=== PATIENT | male | born 1970 | race Caucasian/White ===

== ENCOUNTER 2025-01-04 01:22 | Day surgery (SDC) | payer OTHER, SELFPAY ==
[2024-12-26 09:19] VITALS: BMI 37.9
--- OUTSIDE RECORDS SUMMARY | 2025-01-04 01:26 | XMS_ITS | Clinical Summary ---
Author Organization [facility] Address [facility] [place] [address] Care Team Providers Care Med Admin Name Role Phone Vidal Wood MD Primary Care Provider [phone] Allergies No known active allergies Medications ondansetron (ZOFRAN-ODT) 4 MG disintegrating tablet Take 1 tablet (4 mg total) by mouth every 8 (eight) hours as needed. 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 Gender Identity Not on file Sexual Orientation Not on file Last Filed Vital Signs Vital Sign Reading Time Taken Comments Blood Pressure 160/88 10/02/2022 3:17 PM SHIP YARD ELECTRICAL PERSON Pulse 64 10/02/2022 3:17 PM SHIP YARD ELECTRICAL PERSON Temperature 36.9 C (98.5 F) 10/02/2022 3:17 PM SHIP YARD ELECTRICAL PERSON Respiratory Rate 16 10/02/2022 3:17 PM SHIP YARD ELECTRICAL PERSON Oxygen Saturation 99% 10/02/2022 3:17 PM SHIP YARD ELECTRICAL PERSON Inhaled Oxygen Concentration - - Weight 131.5 kg (290 lb) 10/02/2022 3:17 PM SHIP YARD ELECTRICAL PERSON Height 190.5 cm (6' 3 ) 10/02/2022 3:17 PM SHIP YARD ELECTRICAL PERSON Body Mass Index 36.25 10/02/2022 3:17 PM SHIP YARD ELECTRICAL PERSON Plan of Treatment Health Maintenance Due Date Last Done Comments Colorectal Cancer Screening Colonoscopy (10 Years) 1972 Annual Physical 02/26/1975 Hepatitis C 02/26/1990 DTaP, Tdap and Td Vaccines ( 1 - Tdap) 02/26/1991 Hepatitis B Vaccines (1 of 3 - 19+ 3-dose series) 02/26/1991 Pneumococcal Vaccine: 50+ Ye ars (1 of 1 - PCV) 02/26/2022 Zoster Vaccines (1 of 2) 02/26/2022 COVID-19 Vaccine (1 - 2023-2 5 season) 2024 Meningococcal B Vaccine Aged Out No l onger eligible based on patient's age to complete this topic Meningococcal Vaccine Aged Out No vic bhavna eligible based on patient's age to complete this topic RSV Immunizations Under 20 Months Aged Out No longer eligible based on patient's age to complete this topic Insurance Care Teams Med Admin Relationship Specialty Start Date End Date Vidal Wood MD [address] [place] [address] [address] [place] [address] PCP - General FAMILY PRACTICE 10/02/22
--- OUTSIDE RECORDS SUMMARY | 2025-01-04 01:26 | XMS_ITS | Referral Summary ---
Author Organization [facility] [address] [place] [id number] Care Team Providers Care Test Engineering Manager Name Role Phone Vidal Wood MD Primary Care Provider [phone] Allergies No known active allergies Medications levocetirizine (XYZAL) 5 mg tablet Take 5 mg by mouth every evening Active omeprazole (PriLOSEC) 20 mg capsule Take 20 mg by mouth as needed Active fluticasone propionate (FLONASE) 50 mcg/actuation nasal spray Administer 1 spray into each nostril daily Active eszopiclone (LUNESTA) 3 mg tablet 0 Active Active Problems No known active problems Social History Tobacco Use Types Packs/Day Years Used Date Smoking Tobacco: Never Smokeless Tobacco: Never Alcohol Use Standard Drinks/Week Comments No 0 (1 standard drink = 0.6 oz pur e alcohol) occasional Sex and Gender Information Value Date Recorded Sex Assigned at Not on file 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 Gender Identity Not on file Sexual Orientation Not on file Last Filed Vital Signs Vital Sign Reading Time Taken Comments Blood Pressure 155/84 11/18/2020 7:30 PM CDT Pulse 76 11/18/2020 7:30 PM CDT Temperature 36.8 C (98.3 F) 11/18/2020 6:22 PM CDT Respiratory Rate 20 11/18/2020 6:22 PM CDT Oxygen Saturation 97% 11/18/2020 7:30 PM CDT Inhaled Oxygen Concentration - - Weight 111.1 kg (245 lb) 11/18/2020 6:22 PM CDT Height 188 cm (6' 2 ) 11/18/2020 6:22 PM CDT Body Mass Index 31.46 11/18/2020 6:22 PM CDT Plan of Treatment Not on file Insurance [employer] [facility] [facility] [employer] Address: [facility] [address] [place] [address] [employer] [facility] [employer] Address: [address] [place] [address] Care Teams Test Engineering Manager Relationship Specialty Start Date End Date Vidal Wood MD [address] [address] PCP - General 09/14/07
--- OUTSIDE RECORDS SUMMARY | 2025-01-04 01:26 | XMS_ITS | Clinical Summary ---
Author Organization [facility] Physician Of [facility] [address] [place] [phone] Care Team Providers Care Wagon Driver Salesperson Name Role Phone Vidal Wood MD Primary Care Provider [phone] Allergies No known active allergies Medications levocetirizine (XYZAL) 5 mg tablet Take 5 mg by mouth every evening Active omeprazole (PriLOSEC) 20 mg capsule Take 20 mg by mouth as needed Active fluticasone propionate (FLONASE) 50 mcg/actuation nasal spray Administer 1 spray into each nostril daily Active eszopiclone (LUNESTA) 3 mg tablet 0 Active Active Problems No known active problems Surgical History Surgery Date Site/Laterality Comments TONSILLECTOMY Tonsillectomy Medical History Medical History Date Comments GERD (gastroesophageal reflux disease) Allergic Family History Medical History Relation Name Comments Brain Aneurysm Brother 1 Brain tumor Brother 2 Heart disease Father Diabetes Mother Other Other 1 Family history of Aneurysm; Cancer Other 2 Family history of Cancer -; Diabetes type II Other 3 Family hist ory of Diabetes -Type 2; Hypertension Other 4 Family history of Hypertension; Relation Name Status Comments Brother 1 Brother 2 Father Mother Other 1 Other 2 Other 3 Other 4 Social History Tobacco Use Types Packs/Day Years Used Date Smoking Tobacco: Never Smokeless Tobacco: Never Alcohol Use Standard Drinks/Week Comments No 0 (1 standard drink = 0.6 oz pur e alcohol) occasional Sex and Gender Information Value Date Recorded Sex Assigned at Not on file 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
[2025-01-04 08:39] VITALS: BP 134/96; PULSE 72; RESP 20; TEMP 36.1; O2SAT 98
[2025-01-04] MEDS: LACTATED RINGERS 1,000 ML 150 ML IV CONT (08:41)
--- NOTE | 2025-01-04 08:47 | P.PNAN_ITS ---
Anes - Initial Pre Proc Eval Procedure: Operation Date: 01/04/25 09:30 Proposed Procedures p Screening Colonoscopy - Frederick Valadez MD Date/Time: 01/04/25 08:47 Surgeon: Frederick Valadez MD Pre Op Diagnosis: Screening Patient Data Age: 54 Gender: M Height: 1.88 m Weight: 129 kg Last Vital Signs Temp 97 F L 01/04/25 08:39 Pulse 72 01/04/25 08:39 Resp 20 01/04/25 08:39 BP 134/96 H 01/04/25 08:39 Pulse Ox 98 01/04/25 08:39 O2 Del Method Room Air 01/04/25 08:39 Allergies Allergy/AdvReac Type Severity Reaction Status Date / Time No Known Allergies Allergy Verified 01/04/25 08:33 Home Medications ?Medication ?Instructions ?Recorded ?Confirmed ?Type aluminum chloride 20 % topical 1 applic topical 2XW PRN excessive 09/20/19 12/26/24 Rx solution (Drysol) sweating #35 mL eszopiclone 3 mg tablet 3 mg PO . each bedtime PRN 09/01/22 12/26/24 Rx insomnia #30 tabs fexofenadine 180 mg tablet 180 mg PO DAILY PRN Allergy 08/02/23 01/04/25 History (Linda Allergy) triamcinolone acetonide 0.5 % 1 applic topical DAILY PRN eczema 08/02/23 12/26/24 Rx topical cream #30 grams triamcinolone acetonide 55 mcg 1 spray intranasal . b.i.d. 08/02/23 01/04/25 History nasal spray aerosol (Nasacort Allergy) syringe with needle, safety 3 mL #50 ea 02/11/24 10/11/24 Rx 23 gauge x 1 (BD Integra Syringe) meloxicam 15 mg tablet 15 mg PO DAILY PRN pain #90 tabs 02/29/24 12/26/24 Rx tadalafil 20 mg tablet (Cialis) 20 mg PO DAILY PRN sexual activity 09/08/24 12/26/24 Rx #30 tabs testosterone cypionate 200 mg/mL See Rx Instructions IM .COMPLEX #6 10/11/24 01/04/25 Rx intramuscular oil mL (Depo-Testosterone) modafinil 100 mg tablet 100 mg PO QAM #90 tabs 11/01/24 01/04/25 Rx bupropion HCl 300 mg 24 hr tablet, 300 mg PO QAM #90 tabs 12/05/24 01/04/25 Rx extended release (Wellbutrin XL) ranitidine HCl 150 mg tablet 150 mg PO DAILY 12/26/24 01/04/25 History Patient hx anesthesia problems: none Family hx anesthesia problems: none Results Review: All pre-operative results and documents have been reviewed as part of the pre- operative evaluation. [facility] Past Medical History Medical History Colon cancer screening Cataract cataract left eye with anticipated surgery 10/30/2024 Near syncope Hypersomnia BMI 39.0-39.9,adult Obesity (BMI 30-39.9) Lateral epicondylitis of right elbow (~12/2023) Chronic pain of right knee Eczema hands Morbid obesity with BMI of 40.0-44.9, adult Lateral cutaneous nerve of thigh syndrome Skin exam, screening for cancer Umbilical hernia (~08/02/23) Acute sinusitis Screening for STD (sexually transmitted disease) labs negative on 07/27/2023. Elevated blood pressure reading in office with white coat syndrome, without diagnosis of hypertension BMI 33.0-33.9,adult Family history of cerebral aneurysm Benign paroxysmal positional vertigo due to bilateral vestibular disorder Normal CT of the brain and CT of the sinuses at [facility] ER on 11/18/2020 BMI 32.0-32.9,adult Hyperhidrosis STD exposure all labs negative on 04/04/2021 Encounter for wellness examination in adult Encounter for prostate cancer screening PSA 0.4 on 04/04/2021. PSA 0.58 on 07/27/2023. Seasonal allergic rhinitis Male erectile dysfunction, unspecified Polycythemia hemoglobin 19.0 on 04/04/2021. Hemoglobin normal at 16.7 on 07/27/2023. Hypogonadism male Testosterone 1392 with free testosterone elevated at 252.8 measured 3 days after dosing 07/27/2023. Testosterone 514 with free testosterone 51.9 on 01/28/2024. Chronic depression Chronic anxiety TSH normal at 3.79 on 01/28/2024. Obstructive sleep apnea APAP at 6-16 cm of water pressure with fullface mask and heated humidity with resmed AirSense 10 on 12/29/2017 Vitamin D deficiency, unspecified normal at 34 on 04/04/2021 Vitamin B12 deficiency anemia 738 on 04/04/2021 Mixed hyperlipidemia cholesterol 181, triglycerides 111, HDL 48, LDL 111 on 07/27/2023. Cholesterol 199, triglycerides 102, HDL 48, LDL 131 with ratio 4.2 on 01/28/2024. Abnormal fasting glucose glucose 88 with hemoglobin A1c 4.8 on 04/04/2021. glucose 99 on 07/27/2023. Glucose 94 with hemoglobin A1c 5.6 on 01/28/2024. Family History Family History Mother Hypertension Family history of diabetes mellitus in first degree relative Patient's mother is , Onset Age: 79 Sibling Hypertension Family history of malignant neoplasm of brain Patient's brother is , Onset Age: 37 Father Family history of malignant neoplasm Family history of congestive heart failure, Onset Age: 80 Social History Social History Smoking status: Never smoker Alcohol intake: current Alcohol use details: 6 beers socially Substance use: never Substance use type: does not use Lack of Transportation: No Lack of Food: Never True Current Housing: I Have Housing Concerned About Future Housing: No Difficulty Paying Gas/Electric Bills: No Difficulty Paying for Meds: No Currently Unemployed: No Education: Bachelor's Degree Difficulty w/ Childcare or Family Care: No Living arrangements: alone Spiritual care concerns: No Anes - Eval Final PreProcedure Day of Procedure 01/04/25 08:47 Patient weight: obese Lungs: normal air movement Airway: Mallampati scale class II and special considerations (Stein noted. ) Neurological: alert and oriented Last oral intake: >/= 8 hours ASA classification: III Emergent: no Anesthetic plan: proceed Anesthesia type and monitoring: general GIVS and standard monitoring Results Review: All pre-operative results and documents have been reviewed as part of the pre- operative evaluation. Borderline hyperlipidemia, TONY on CPAP. Informed Consent: The patient's anesthetic plan and its attendant risks and benefits were discussed with the patient/family/POA. Questions were solicited and answers provided to the satisfaction of the patient/family/POA.
--- NOTE | 2025-01-04 08:54 | PM.HPGS ---
History of Present Illness History of Present Illness Consent: Risks, benefits, and alternatives have been discussed and questions answered. Patient agrees to proceed with procedure. Chief complaint: Screening Narrative: Mat Elizabeth is a 54 year old male here for screening colonoscopy, last one about 14 years ago Review of Systems Review of Systems: All systems reviewed & are unremarkable except as noted in HPI and below PMFSH Past Medical History Medical History Colon cancer screening Cataract cataract left eye with anticipated surgery 10/30/2024 Near syncope Hypersomnia BMI 39.0-39.9,adult Obesity (BMI 30-39.9) Lateral epicondylitis of right elbow (~12/2023) Chronic pain of right knee Eczema hands Morbid obesity with BMI of 40.0-44.9, adult Lateral cutaneous nerve of thigh syndrome Skin exam, screening for cancer Umbilical hernia (~08/02/23) Acute sinusitis Screening for STD (sexually transmitted disease) labs negative on 07/27/2023. Elevated blood pressure reading in office with white coat syndrome, without diagnosis of hypertension BMI 33.0-33.9,adult Family history of cerebral aneurysm Benign paroxysmal positional vertigo due to bilateral vestibular disorder Normal CT of the brain and CT of the sinuses at [facility] ER on 11/18/2020 BMI 32.0-32.9,adult Hyperhidrosis STD exposure all labs negative on 04/04/2021 Encounter for wellness examination in adult Encounter for prostate cancer screening PSA 0.4 on 04/04/2021. PSA 0.58 on 07/27/2023. Seasonal allergic rhinitis Male erectile dysfunction, unspecified Polycythemia hemoglobin 19.0 on 04/04/2021. Hemoglobin normal at 16.7 on 07/27/2023. Hypogonadism male Testosterone 1392 with free testosterone elevated at 252.8 measured 3 days after dosing 07/27/2023. Testosterone 514 with free testosterone 51.9 on 01/28/2024. Chronic depression Chronic anxiety TSH normal at 3.79 on 01/28/2024. Obstructive sleep apnea APAP at 6-16 cm of water pressure with fullface mask and heated humidity with resmed AirSense 10 on 12/29/2017 Vitamin D deficiency, unspecified normal at 34 on 04/04/2021 Vitamin B12 deficiency anemia 738 on 04/04/2021 Mixed hyperlipidemia cholesterol 181, triglycerides 111, HDL 48, LDL 111 on 07/27/2023. Cholesterol 199, triglycerides 102, HDL 48, LDL 131 with ratio 4.2 on 01/28/2024. Abnormal fasting glucose glucose 88 with hemoglobin A1c 4.8 on 04/04/2021. glucose 99 on 07/27/2023. Glucose 94 with hemoglobin A1c 5.6 on 01/28/2024. Family History Family History Mother Hypertension Family history of diabetes mellitus in first degree relative Patient's mother is , Onset Age: 79 Sibling Hypertension Family history of malignant neoplasm of brain Patient's brother is , Onset Age: 37 Father Family history of malignant neoplasm Family history of congestive heart failure, Onset Age: 80 Social History Social History Smoking status: Never smoker Alcohol intake: current Alcohol use details: 6 beers socially Substance use: never Substance use type: does not use Lack of Transportation: No Lack of Food: Never True Current Housing: I Have Housing Concerned About Future Housing: No Difficulty Paying Gas/Electric Bills: No Difficulty Paying for Meds: No Currently Unemployed: No Education: Bachelor's Degree Difficulty w/ Childcare or Family Care: No Living arrangements: alone Spiritual care concerns: No Meds Home Medications and Allergies Home Medications ?Medication ?Instructions ?Recorded ?Confirmed ?Type aluminum chloride 20 % topical 1 applic topical 2XW PRN excessive 09/20/19 12/26/24 Rx solution (Drysol) sweating #35 mL eszopiclone 3 mg tablet 3 mg PO . each bedtime PRN 09/01/22 12/26/24 Rx insomnia #30 tabs fexofenadine 180 mg tablet 180 mg PO DAILY PRN Allergy 08/02/23 01/04/25 History (Linda Allergy) triamcinolone acetonide 0.5 % 1 applic topical DAILY PRN eczema 08/02/23 12/26/24 Rx topical cream #30 grams triamcinolone acetonide 55 mcg 1 spray intranasal . b.i.d. 08/02/23 01/04/25 History nasal spray aerosol (Nasacort Allergy) syringe with needle, safety 3 mL #50 ea 06/14/24 02/12/25 Rx 23 gauge x 1 (BD Integra Syringe) meloxicam 15 mg tablet 15 mg PO DAILY PRN pain #90 tabs 02/29/24 12/26/24 Rx tadalafil 20 mg tablet (Cialis) 20 mg PO DAILY PRN sexual activity 09/08/24 12/26/24 Rx #30 tabs testosterone cypionate 200 mg/mL See Rx Instructions IM .COMPLEX #6 10/11/24 01/04/25 Rx intramuscular oil mL (Depo-Testosterone) modafinil 100 mg tablet 100 mg PO QAM #90 tabs 11/01/24 01/04/25 Rx bupropion HCl 300 mg 24 hr tablet, 300 mg PO QAM #90 tabs 12/05/24 01/04/25 Rx extended release (Wellbutrin XL) ranitidine HCl 150 mg tablet 150 mg PO DAILY 12/26/24 01/04/25 History Allergies Allergy/AdvReac Type Severity Reaction Status Date / Time No Known Allergies Allergy Verified 01/04/25 08:33 Vital Signs Vital Signs - 24 hr 01/04/25 08:39 Temperature 97 F L Pulse Rate 72 Respiratory Rate 20 Blood Pressure 134/96 H Pulse Oximetry 98 Oxygen Delivery Room Air Exam Const: General: comfortable and no acute distress HENMT: Face/Nose/Sinus: Normal nares present Eyes: General: appearance normal, both eyes and all related structures Neck: Neck: no JVD Resp: Auscultation: clear to auscultation bilaterally Cardio: Rate: regular rate Rhythm: regular rhythm GI: Inspection: non-distended GI Palp: Yes Soft to palpation Skin: General skin exam: normal color Neuro: General: gait normal Speech: normal speech Extrem: General: normal to inspection Psych: Mental Status: mental status grossly normal Assessment and Plan Assessment and plan (1) Colon cancer screening: Code(s): Z12.11 - Encounter for screening for malignant neoplasm of colon Status: Acute Assessment and Plan: colonoscopy
[2025-01-04 09:20] VITALS: BP 137/84; PULSE 68; RESP 19; O2SAT 96
[2025-01-04 09:30] VITALS: BP 135/82; PULSE 70; RESP 19; O2SAT 96
[2025-01-04 09:40] VITALS: BP 139/74; PULSE 70; RESP 19; O2SAT 96
== END 2025-01-04 09:50 | disposition home or self-care (01) ==
PROVIDERS: PCP Family Medicine; Referring Provider Family Medicine; Visit Provider Internal Medicine Gastroenterology
PROC: 0DJD8ZZ Inspection of Lower Intestinal Tract, Via Natural or Artificial Opening Endoscopic (ICD-10-PCS; CPT 45378; principal; 2025-01-04 09:30)
DX: Z12.11 Encounter for screening for malignant neoplasm of colon (principal); D12.0 Benign neoplasm of cecum; K63.5 Polyp of colon; E66.9 Obesity, unspecified; Z68.36 Body mass index [BMI] 36.0-36.9, adult
CPT/HCPCS: 45385; 88305; J2003; J2704; J7120